=== PATIENT | female | born 1995 | race Caucasian/White ===

== ENCOUNTER 2016-11-30 22:37 | Emergency (ER) | payer SELFPAY ==
[~2016-11-30] VITALS: Ht 167.6 cm; Wt 70.9 kg
[2016-11-30] MEDS ORDERED: SODIUM CHLORIDE 0.9% 1,000ML IVBOLUS ONE (23:30)
[2016-11-30] MEDS ORDERED: SODIUM CHLORIDE FLUSH 10ML SYR IVF ONE (23:30)
[2016-11-30 23:36] LABS: HEMATOCRIT 39.1 % (34.6-47.8); HEMOGLOBIN 13.2 g/dL (11.7-16.4); WHITE BLOOD COUNT 10.2 x10^3/uL (3.4-10)
[2016-11-30 23:49] LABS: ASPARTATE AMINO TRANSFERASE 12 U/L (15-37); BLOOD UREA NITROGEN 4 mg/dL (7-18)
[2016-11-30 23:55] LABS: IS PT STATUS REG ER OR PRE ER? YES
[2016-12-01 00:43] VITALS: BP 116/69
== END 2016-12-01 00:49 | disposition home or self-care (01) ==
LOC: ED 23:49
DX: O99.351 Diseases of the nervous system complicating pregnancy, first trimester (principal); R55 Syncope and collapse; O23.11 Infections of bladder in pregnancy, first trimester; N30.00 Acute cystitis without hematuria; Z3A.00 Weeks of gestation of pregnancy not specified
CPT/HCPCS: 36415; 80053; 81001; 84484; 85025; 87086; 93005; 99285

== ENCOUNTER 2017-05-02 10:55 | Observation (INO) | payer OTHER ==
[~2017-05-02] VITALS: Ht 167.6 cm; Wt 77.7 kg
[2017-05-02] MEDS ORDERED: PREN-53 PO (11:02)
[2017-05-02 12:03] LABS: AMPHETAMINE SCREEN, URINE Negative (Negative); BARBITURATE SCREEN, URINE Negative (Negative); BENZODIAZEPINE SCREEN, URINE Negative (Negative); CANNABINOID SCREEN, URINE Negative (Negative); COCAINE SCREEN, URINE Negative (Negative); METHADONE SCREEN, URINE Negative (Negative); OPIATE SCREEN, URINE Negative (Negative)
[2017-05-02 12:09] LABS: CULTURE INDICATED? YES; MICROSCOPIC INDICATED
[2017-05-02 12:31] VITALS: BP 123/70
[2017-05-02 13:25] LABS: BASOPHILS # (AUTO) 0.03 x10^3/uL (0-0.1); BASOPHILS % (AUTO) 0 % (0-1); EOSINOPHILS # (AUTO) 0.04 x10^3/uL (0-0.4); EOSINOPHILS % (AUTO) 0 % (1-7); LYMPHOCYTES # (AUTO) 1.54 x10^3/uL (1-3.4); LYMPHOCYTES % (AUTO) 11 % (22-44); MD NO; MEAN CORPUSCULAR HEMOGLOBIN 30.1 pg (27.0-34.8); MEAN CORPUSCULAR HGB CONC 33.7 g/dL (32.4-35.8); MEAN CORPUSCULAR VOLUME 89.4 fL (80-100); MONOCYTES # (AUTO) 0.81 x10^3/uL (0.2-0.8); MONOCYTES % (AUTO) 6 % (2-9); NEUTROPHILS # (AUTO) 12.24 x10^3/uL (1.8-6.8); NEUTROPHILS % (AUTO) 83 % (42-75); PLATELET COUNT 287 x10^3/uL (130-400); RED BLOOD COUNT 3.77 x10^6/uL (3.82-5.3); RED CELL DISTRIBUTION WIDTH 12.8 % (9.6-15.2)
[2017-05-02] MEDS ORDERED: TERBUTALINE 1 MG/ML, 1ML ONE (13:43)
[2017-05-02] MEDS ORDERED: TERBUTALINE 1 MG/ML, 1ML SQ ONE (14:00)
[2017-05-02] MEDS ORDERED: LACTATED RINGERS 1,000 ML IV SCH (14:00)
[2017-05-02] MEDS ORDERED: FLU VACC QS2017-18 (36MOS+) UP/PF 0.5 ML IM-VACC ONE (18:30)
== END 2017-05-02 18:42 | disposition home or self-care (01) ==
LOC: LDOP 10:55 → LDIP 14:32
PROVIDERS: ADMIT Obstetrics & Gynecology; ATTEND Obstetrics & Gynecology
DX: O26.899 Other specified pregnancy related conditions, unspecified trimester (principal); M25.552 Pain in left hip; Z3A.00 Weeks of gestation of pregnancy not specified
CPT/HCPCS: 36415; 59025; 80307; 81001; 82731; 85025; 87086; 90471; 90686; 93970; 96360; 96361; 96372; G0378; J3105; J7120

== ENCOUNTER 2019-07-05 18:37 | Outpatient (CLI) | payer MEDICAID, OTHER ==
[~2019-07-05] VITALS: Ht 167.6 cm; Wt 67.9 kg
[~2019-07-05 18:37] MED LIST: PREN-53 PO
[2019-07-05 19:05] VITALS: BP 109/62
[2019-07-05 20:25] LABS: AMPHETAMINE SCREEN, URINE Negative (Negative); BARBITURATE SCREEN, URINE Negative (Negative); BENZODIAZEPINE SCREEN, URINE Negative (Negative); CANNABINOID SCREEN, URINE Negative (Negative); COCAINE SCREEN, URINE Negative (Negative); METHADONE SCREEN, URINE Negative (Negative); OPIATE SCREEN, URINE Negative (Negative)
[2019-07-05 20:27] LABS: MICROSCOPIC INDICATED
[2019-07-05 20:28] LABS: CULTURE INDICATED? YES
== END 2019-07-05 20:59 | disposition home or self-care (01) ==
LOC: LDOP 18:37
PROVIDERS: ATTEND Obstetrics & Gynecology
DX: O26.893 Other specified pregnancy related conditions, third trimester (principal); R10.9 Unspecified abdominal pain; Z3A.36 36 weeks gestation of pregnancy
CPT/HCPCS: 36415; 59025; 80307; 81001; 86592; 86762; 86803; 86850; 86900; 87086; 87340; 87806; 99211; G0463; G0475

== ENCOUNTER 2019-09-01 20:51 | Inpatient (IN) | payer MEDICAID ==
[~2019-09-01] VITALS: Ht 165.1 cm; Wt 73.5 kg
[2019-09-01 21:23] VITALS: BP 112/67
[2019-09-01 21:35] LABS: MICROSCOPIC INDICATED
[2019-09-01] MEDS ORDERED: NITROFURANTOIN (MACROBID) 100 MG CAPSULE ONE (21:42)
[2019-09-01 21:47] LABS: AMPHETAMINE SCREEN, URINE Negative (Negative); BARBITURATE SCREEN, URINE Negative (Negative); BENZODIAZEPINE SCREEN, URINE Negative (Negative); CANNABINOID SCREEN, URINE Negative (Negative); COCAINE SCREEN, URINE Negative (Negative); METHADONE SCREEN, URINE Negative (Negative); OPIATE SCREEN, URINE Negative (Negative)
[2019-09-01] MEDS ORDERED: NITROFURANTOIN (MACROBID) 100 MG CAPSULE PO ONE (22:00)
[2019-09-01] MEDS ORDERED: LACTATED RINGERS 500 ML IVBOLUS ONE (22:00)
[2019-09-01] MEDS ORDERED: NITR100C56 PO (22:10)
[2019-09-01] MEDS ORDERED: SODIUM CITRATE/CITRIC ACID 30 ML UDC ONE (23:42)
[2019-09-01] MEDS ORDERED: NEWBORN KIT ONE (23:42)
[2019-09-01] MEDS ORDERED: OXYTOCIN 30U/ 0.9% NaCL 500ML 500 ML ONE (23:42)
[2019-09-01] MEDS ORDERED: METOCLOPRAMIDE 5 MG/ML, 2ML ONE (23:42)
[2019-09-02] LABS: BASOPHILS # (AUTO) 0.07 x10^3/uL (0-0.1); BASOPHILS % (AUTO) 1 % (0-1); EOSINOPHILS # (AUTO) 0.02 x10^3/uL (0-0.4); EOSINOPHILS % (AUTO) 0 % (1-7); LYMPHOCYTES # (AUTO) 2.45 x10^3/uL (1-3.4); LYMPHOCYTES % (AUTO) 16 % (22-44); MD NO; MEAN CORPUSCULAR HEMOGLOBIN 27.3 pg (27.0-34.8); MEAN CORPUSCULAR HGB CONC 32.8 g/dL (32.4-35.8); MEAN CORPUSCULAR VOLUME 83.2 fL (80-100); MEAN PLATELET VOLUME 7.9 fL (7.4-10.4); MONOCYTES % (AUTO) 5 % (2-9); NEUTROPHILS # (AUTO) 11.62 x10^3/uL (1.8-6.8); NEUTROPHILS % (AUTO) 78 % (42-75); PLATELET COUNT 254 x10^3/uL (130-400); RED BLOOD COUNT 3.79 x10^6/uL (3.82-5.3); RED CELL DISTRIBUTION WIDTH 14.3 % (9.6-15.2)
[2019-09-02] MEDS ORDERED: SODIUM CITRATE/CITRIC ACID 30 ML UDC PO ONE
[2019-09-02] MEDS ORDERED: METOCLOPRAMIDE 5 MG/ML, 2ML IV ONE
[2019-09-02] MEDS ORDERED: LACTATED RINGERS 1,000 ML IVBOLUS ONE
[2019-09-02] MEDS ORDERED: morphine SULFATE/PF 1 MG/ML, 10ML ONE (00:49)
[2019-09-02] MEDS ORDERED: LIDOCAINE 1%, 20ML ONE (00:50)
[2019-09-02] MEDS ORDERED: OXYTOCIN 10 UNITS/ML, 1ML ONE (00:51)
[2019-09-02] MEDS ORDERED: KETOROLAC 30 MG/1 ML ONE (00:51)
[2019-09-02] MEDS ORDERED: WATER-INJECTION,STERILE 10 ML IV ONE (00:51)
[2019-09-02] MEDS ORDERED: DEXAMETHASONE 4 MG/ML, 1ML ONE (00:51)
[2019-09-02] MEDS ORDERED: CEFAZOLIN 1,000 MG ONE (00:51)
[2019-09-02] MEDS ORDERED: ONDANSETRON 2MG/ML, 2ML ONE (00:51)
[2019-09-02] MEDS ORDERED: PHENYLEPHRINE 10 MG/ML ONE (00:52)
[2019-09-02] MEDS ORDERED: SODIUM CHLORIDE 0.9% PF 10ML ONE (00:52)
[2019-09-02] MEDS ORDERED: MIDAZOLAM 1 MG/ML, 5ML ONE (01:03)
[2019-09-02] MEDS ORDERED: OXYTOCIN 30U/ 0.9% NaCL 500ML 500 ML IV SCH (01:41)
[2019-09-02] MEDS ORDERED: morphine SULFATE 10 MG/ML, 1ML IVPush PRN (02:00)
[2019-09-02] MEDS ORDERED: TRANEXAMIC ACID 100 MG/ML, 10ML IV ONE (02:00)
[2019-09-02] MEDS ORDERED: OXYcodone/APAP 5/325MG TABLET PO PRN ×3 (02:00→07:30)
[2019-09-02] MEDS ORDERED: ONDANSETRON 2MG/ML, 2ML IV PRN (02:00)
[2019-09-02] MEDS ORDERED: IBUPROFEN 600 MG TABLET PO PRN (02:00)
[2019-09-02] MEDS ORDERED: MISOPROSTOL 200 MCG TABLET PR PRN (02:00)
[2019-09-02] MEDS ORDERED: SIMETHICONE 80 MG CHEW TAB PO PRN (02:00)
[2019-09-02] MEDS ORDERED: KETOROLAC 30 MG/1 ML IV SCH (02:00)
[2019-09-02] MEDS ORDERED: OXYcodone 5 MG/5 ML ORAL.SOL UDC ONE (02:27)
[2019-09-02 04:15] VITALS: BP 105/57
[2019-09-02] MEDS ORDERED: DIPHENHYDRAMINE 50 MG/ML, 1ML IV PRN (07:30)
[2019-09-02] MEDS ORDERED: ONDANSETRON 2MG/ML, 2ML IVPush PRN (07:30)
[2019-09-02] MEDS ORDERED: NO SEDATIVES, TRANQUILIZERS OR ANTIEMETICS XX SCH (07:30)
[2019-09-02] MEDS: KETOROLAC 30 MG/1 ML IVPush SCH ×3 (07:54→20:48)
[2019-09-02 08:00] VITALS: BP 113/55
[2019-09-02] MEDS ORDERED: NALOXONE 0.4 MG/ML, 1ML IV PRN (08:00)
[2019-09-02] MEDS ORDERED: EPHEDRINE 50 MG/ML, 1ML IVPush PRN (08:00)
[2019-09-02] MEDS ORDERED: NITROFURANTOIN (MACROBID) 100 MG CAPSULE PO SCH (09:00)
[2019-09-02] MEDS ORDERED: PRENATAL VIT/IRON/FA 1 EACH TABLET PO SCH (09:00)
[2019-09-02 12:00] VITALS: BP 110/62
[2019-09-02 14:15] LABS: BASOPHILS # (AUTO) 0.03 x10^3/uL (0-0.1); BASOPHILS % (AUTO) 0 % (0-1); EOSINOPHILS % (AUTO) 0 % (1-7); LYMPHOCYTES # (AUTO) 1.61 x10^3/uL (1-3.4); LYMPHOCYTES % (AUTO) 8 % (22-44); MEAN CORPUSCULAR HEMOGLOBIN 27.4 pg (27.0-34.8); MEAN CORPUSCULAR HGB CONC 32.8 g/dL (32.4-35.8); MEAN CORPUSCULAR VOLUME 83.5 fL (80-100); MEAN PLATELET VOLUME 7.9 fL (7.4-10.4); MONOCYTES # (AUTO) 1.17 x10^3/uL (0.2-0.8); MONOCYTES % (AUTO) 6 % (2-9); NEUTROPHILS # (AUTO) 16.53 x10^3/uL (1.8-6.8); NEUTROPHILS % (AUTO) 86 % (42-75); PLATELET COUNT 279 x10^3/uL (130-400); RED BLOOD COUNT 3.46 x10^6/uL (3.82-5.3); RED CELL DISTRIBUTION WIDTH 13.9 % (9.6-15.2)
[2019-09-02 14:16] LABS: MD NO
[2019-09-02 16:00] VITALS: BP 109/59
[2019-09-02 21:05] VITALS: BP 99/55
[2019-09-03] MEDS ORDERED: SIMETHICONE 80 MG CHEW TAB PO PRN
[2019-09-03] MEDS ORDERED: OXYcodone/APAP 5/325MG TABLET PO PRN ×2
[2019-09-03] MEDS: NITROFURANTOIN (MACROBID) 100 MG CAPSULE PO SCH ×3 (00:59→21:54)
[2019-09-03 01:00] VITALS: BP 111/59
[2019-09-03 07:05] VITALS: BP 90/56
[2019-09-03] MEDS: PRENATAL VIT/IRON/FA 1 EACH TABLET PO SCH (09:17)
[2019-09-03] MEDS: IBUPROFEN 600 MG TABLET PO PRN ×3 (09:32→23:30)
[2019-09-03 20:30] VITALS: BP 106/68
[2019-09-03] MEDS ORDERED: DOCUSATE 100 MG CAPSULE ONE (23:26)
[2019-09-03] MEDS: DOCUSATE 100 MG CAPSULE PO PRN (23:35)
[2019-09-04 08:00] VITALS: BP 119/87
[2019-09-04] MEDS: IBUPROFEN 600 MG TABLET PO PRN ×2 (08:36→21:01)
[2019-09-04] MEDS: DOCUSATE 100 MG CAPSULE PO PRN ×2 (08:36→21:01)
[2019-09-04] MEDS: NITROFURANTOIN (MACROBID) 100 MG CAPSULE PO SCH ×2 (08:36→21:01)
[2019-09-04] MEDS: PRENATAL VIT/IRON/FA 1 EACH TABLET PO SCH (08:36)
[2019-09-04 19:30] VITALS: BP 110/56
[2019-09-05] MEDS: IBUPROFEN 600 MG TABLET PO PRN ×3 (03:27→20:24)
[2019-09-05 08:00] VITALS: BP 90/55
[2019-09-05] MEDS ORDERED: OXYC-302 PO (08:42)
[2019-09-05] MEDS ORDERED: DOCU-131 PO (08:42)
[2019-09-05] MEDS ORDERED: IBUP-1222 PO (08:43)
[2019-09-05] MEDS: PRENATAL VIT/IRON/FA 1 EACH TABLET PO SCH (09:00)
[2019-09-05] MEDS: NITROFURANTOIN (MACROBID) 100 MG CAPSULE PO SCH ×2 (09:57→20:24)
[2019-09-05 20:00] VITALS: BP 99/63
[2019-09-05] MEDS: DOCUSATE 100 MG CAPSULE PO PRN (20:24)
[2019-09-06 07:20] VITALS: BP 110/71
[2019-09-06] MEDS: PRENATAL VIT/IRON/FA 1 EACH TABLET PO SCH (09:00)
[2019-09-06] MEDS: NITROFURANTOIN (MACROBID) 100 MG CAPSULE PO SCH (10:37)
[2019-09-06] MEDS ORDERED: DIPH,PERTUSS(ACELL),TET VAC/PF NC IM-VACC ONE ×2 (11:43→12:00)
== END 2019-09-06 12:10 | disposition home or self-care (01) | DRG 785 ==
LOC: LDOP 20:51 → LDIP 23:48 → 2NW 09-02 04:16
PROVIDERS: ADMIT Obstetrics & Gynecology; ATTEND Obstetrics & Gynecology
PROC: 10D00Z1 Extraction of Products of Conception, Low, Open Approach (ICD-10-PCS; principal; 2019-09-06)
PROC: 0UB70ZZ Excision of Bilateral Fallopian Tubes, Open Approach (ICD-10-PCS; 2019-09-06)
DX: O34.211 Maternal care for low transverse scar from previous cesarean delivery (principal); Z37.0 Single live birth; O40.3XX0 Polyhydramnios, third trimester, not applicable or unspecified; O32.2XX0 Maternal care for transverse and oblique lie, not applicable or unspecified; O36.5930 Maternal care for other known or suspected poor fetal growth, third trimester, not applicable or unspecified; Z30.2 Encounter for sterilization; Z3A.37 37 weeks gestation of pregnancy
CPT/HCPCS: 36415; J3490; 80307; 81001; 82803; 84112; 85025; 86592; 86850; 86900; 90715; G0378; J0690; J1100; J1885; J2250; J2274; J2405; J7120; J2370; J2590; J2765